=== PATIENT | male | born 1990 | race Caucasian/White ===

== ENCOUNTER 2025-04-26 08:57 | Emergency (ER) | payer BC, SELFPAY ==
[2025-04-26 09:10] VITALS: BP 117/73
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
[2025-04-26 12:37] LABS: Hematocrit 38.5 % (39.0-52.0); Hemoglobin 13.4 g/dL (13.0-18.0); Mean Corp Hgb Conc. 34.8 g/dL (33.0-37.0); Mean Corpuscular Volume 86.9 fL (80.0-94.0); Nucleated Red Blood Cells % 0 % (-); Platelet Count 293 10^3/uL (130-400); Red Cell Dist. Width 12.2 % (11.5-14.5)
[2025-04-26 12:58] LABS: ALT (SGPT) 27 U/L (0-50); AST (SGOT) 30 U/L (17-59); Albumin 4.7 g/dl (3.5-5.0); Alkaline Phosphatase 70 U/L (38-126); Blood Urea Nitrogen 13 mg/dl (9-20); Calcium 9.9 mg/dl (8.4-10.2); Carbon Dioxide 26 mmol/L (22-30); Chloride 109 mmol/L (98-107); Glucose 87 mg/dl (70-99); Potassium 4.2 mmol/L (3.5-5.1); Sodium 140 mmol/L (135-145); Total Protein 7.0 g/dl (6.3-8.2); eGFR > 60.00
== END 2025-04-26 15:15 ==
LOC: EMR 08:57
PROVIDERS: EMERGENCY PHYSICIAN Emergency Medicine; FAMILY PHYSICIAN Family Medicine
DX: F23 Brief psychotic disorder (principal); F22 Delusional disorders; R44.1 Visual hallucinations; F41.9 Anxiety disorder, unspecified; G47.9 Sleep disorder, unspecified
CPT/HCPCS: 99285; 80053; 80306; 82077; 85025

== ENCOUNTER 2025-09-18 17:40 | Emergency (ER) | payer MEDICAID, SELFPAY ==
[2025-09-18 17:52] VITALS: BP 140/62
[2025-09-18 20:01] VITALS: BMI 24.6
--- NOTE | 2025-09-18 20:35 | ED.GENMED ---
History of Present Illness
General
Chief Complaint: Musculo-Skeletal Complaint
Time Seen by Provider: 09/18/25 19:24
History of Present Illness
History of Present Illness:
34-year-old male presents to the emergency department for evaluation of acute on chronic left shoulder pain. States that he injured this shoulder approximately 5 years ago at work and has given him problems ever since. He has difficulty with
lifting or raising his shoulder overhead. Also states that while trying to swim he is developing increasing pain. Pain seems to worsen at nighttime preventing him from sleeping adequately. Has never seen orthopedist for this
Past History
Past History
ED Past Medical History: Psychiatric (Anxiety, never given a psychiatric diagnosis)
ED Past Surgical History: Orthopedic
Social History
Tobacco: Non-smoker
Alcohol: Occasional
Drug: Marijuana
Personal: Other (Engaged to be )
Living: with family
Employment: Not employed
Family History
Family History: Other (Maternal grandfather had psychiatric illness according to family)
Review of Systems
Review of Systems
Allergies reviewed?: Yes
All Other Systems: ROS reviewed and negative except as documented in HPI and ROS
Phy Exam
Physical Exam
Physical Exam:
GEN: Well appearing, NAD, WDWN
HEENT: Oral mucosa moist, no scleral icterus
Cardiac: Regular rate
Lung: No respiratory distress, no tachypnea
MSK: No gross deformity or injuries. Full range of motion of left shoulder observed. There is no weakness to internal or external rotation and no palpable crepitus
Skin: Good color, no pallor or jaundice, no rashes
Neuro: AO x3, moves all extremities freely
Psych: Calm, cooperative
Course
Orders/Labs/Results
Orders:
Orders
09/18/25 19:48
CR Shoulder - Left Min 2 View* Urgent
Comment:
Reason For Exam: non traumatic pain
Vital Signs
Initial and Last Documented VS:
Initial Vital Signs
Temp Pulse Resp BP Pulse Ox
98.2 F 61 18 140/62 99
09/18/25 17:52 09/18/25 17:52 09/18/25 17:52 09/18/25 17:52 09/18/25 17:52
Last Documented Vital Signs
Temp Pulse Resp BP Pulse Ox
98.2 F 61 18 140/62 99
09/18/25 17:52 09/18/25 17:52 09/18/25 17:52 09/18/25 17:52 09/18/25 20:36
MDM/Problems Addressed
MDM/Problems Addressed:
No significant strength deficits of the shoulder to suggest significant rotator cuff pathology. Will place him on NSAIDs and refer to orthopedics
*Pulse Oximetry
SaO2: 99
Oxygen Mode of Delivery: Room air
Patient hypoxic: no
*Critical Care Note
Total Time (30-74mins, 75-104mins- exclusive of procedures): Not Applicable
ED Attending Note
-
Portions of this chart may have been created with voice recognition software.� Occasional wrong word or��sound alike� substitutions may have occurred due to the inherent limitations of voice recognition software.
Discharge Plan
Departure
Patient Disposition: Home (Routine Discharge)
Date of Disposition: 09/18/25
Time of Disposition: 20:45
Patient with high blood pressure during this ER visit?: No
Discharge Problem:
Chronic left shoulder pain
Instructions: Shoulder pain - ED (DC)
Prescriptions:
New
celecoxib 200 mg capsule
200 mg PO BID Qty: 20 0RF
Referrals:
Kian Osorio MD [Family Provider, Family Practice]
Franky Crouch MD [Active, Orthopedics]
Activity Restrictions/Additional Instructions:
Follow up with Orthopedics
Interventions
Interventions:
*Risk Screen - Suicide Last Done: 09/18/25 17:52
*General Assessment Last Done: 09/18/25 20:01
*Neglect/Abuse Screening Last Done: 09/18/25 17:52
*ED- Fall Risk Assessment Last Done: 09/18/25 20:01
*ED COVID-19 Vaccine History Last Done: 09/18/25 20:01
*ED Influenza Vaccine History Last Done: 09/18/25 20:01
*Nursing Disposition Last Done: 09/18/25 20:51
ED-Musculoskeletal Assessment Last Done: 09/18/25 20:01
Discharge Date and Time
Discharge Date/Time: 09/18/25 20:52
Print Language: MALTESE
== END 2025-09-18 20:52 | disposition home or self-care (01) ==
LOC: EMR 17:40
PROVIDERS: EMERGENCY PHYSICIAN Emergency Medicine; FAMILY PHYSICIAN Family Medicine
DX: M25.512 Pain in left shoulder (principal); G89.21 Chronic pain due to trauma
CPT/HCPCS: 99283; 73030